=== PATIENT | male | born 1975 | race Caucasian/White ===

== ENCOUNTER 2018-07-25 07:26 | Emergency (ER) | payer OTHER ==
[2018-07-25 07:42] VITALS: BP 157/93
--- NOTE | 2018-07-25 08:18 | EDPHY ---
H & P Time Seen by Provider: 07/25/18 07:38 HPI/ROS: CHIEF COMPLAINT: Right shoulder pain HISTORY OF PRESENT ILLNESS: Patient was playing hockey this morning around 6 a.m.. He states he was in the midst of a "break away" when he lost his footing , hit the ice, then slid into the wall striking his right shoulder. He was wearing a helmet, he denies loss of consciousness, he denies other injury besides his shoulder pain. He denies numbness, tingling, weakness in the hand or wrist. No elbow injury. He states in orthopedist was in the game with him and thought that he might have an AC separation. Left-hand dominant. REVIEW OF SYSTEMS: Negative except per HPI. General Appearance: Alert, no distress. Eyes: Pupils equal and round no icterus Respiratory: No respiratory distress Neurological: Awake, alert, no focal deficits. Skin: Warm and dry, no rashes. Musculoskeletal: Neck is supple nontender. Right shoulder with some swelling, mild deformity at the AC joint. Normal passive range of motion to the glenohumeral joint. Distal functions intact. Psychiatric: Patient is oriented X 3, there is no agitation. Medical/surgical history: Nasal surgery. Social history: Smokes tobacco, denies ETOH or drugs. Smoking Status: Current every day smoker Constitutional: Initial Vital Signs Temperature (C) 36.9 C 07/25/18 07:35 Heart Rate 77 07/25/18 07:35 Respiratory Rate 18 07/25/18 07:35 Blood Pressure 157/93 H 07/25/18 07:35 O2 Sat (%) 94 07/25/18 07:35 O2 Delivery Mode Room Air Allergies/Adverse Reactions: No Known Allergies Allergy (Unverified 07/25/18 07:35) Home Medications: Medication Instructions Recorded NK [No Known Home Meds] 07/25/18 Medical Decision Making - Diagnostics Imaging Results: Imaging Impressions Clavicle X-Ray 07/25/18 07:39 Impression: No fracture identified. Imaging: Discussed imaging studies w/ call center dispatcher Radiologist Differential Diagnosis: 43-year-old male with right shoulder injury sustained while playing hockey this morning. After evaluation suspect AC separation, likely grade 3. No neurovascular compromise. No evidence of fracture or dislocation. Placed in a sling. Discussed orthopedic follow-up. Reviewed return precautions. Stable for discharge. Departure - Departure Disposition: Home, Routine, Self-Care Clinical Impression: AC separation, type 3 Qualifiers: Encounter type: initial encounter Laterality: right Qualified Code(s): S43.101A - Unspecified dislocation of right acromioclavicular joint, initial encounter Condition: Good Instructions: Acromioclavicular Separation (ED) Additional Instructions: Use ice and ibuprofen as discussed. Wear sling or shoulder immobilizer at all times except when in shower. Follow-up with orthopedist in the next 2-5 days. Referrals: NONE *PRIMARY CARE P,. [Primary Care Provider] - As per Instructions Dillon Salazar MD [Medical Doctor] - As per Instructions
== END 2018-07-25 08:25 | disposition home or self-care (01) ==
LOC: CED 07:26
DX: S43.101A Unspecified dislocation of right acromioclavicular joint, initial encounter (principal); V00.211A Fall from ice-skates, initial encounter; Y93.22 Activity, ice hockey; F17.200 Nicotine dependence, unspecified, uncomplicated
CPT/HCPCS: 73000-PO; 99283-ER; A4565-ER